=== PATIENT | male | born 1965 | race Two or more races ===

== ENCOUNTER 2021-10-15 13:40 | Outpatient (CLI) | payer OTHER | END 2021-10-15 23:59 | disposition home or self-care (01) | LOC: LAB 13:40 | PROVIDERS: ATTEND Specialist | DX: Z01.812 Encounter for preprocedural laboratory examination (principal); Z20.822 Contact with and (suspected) exposure to COVID-19 | CPT/HCPCS: U0003; C9803 ==

== ENCOUNTER 2021-10-21 05:47 | Inpatient (IN) | payer OTHER ==
[~2021-10-21] VITALS: Ht 185.4 cm; Wt 125.6 kg
[~2021-10-21 05:47] MED LIST: ANESTHESIA TRAY IN PYXIS 1 EA TRAY MC ONE
[2021-10-21] MEDS ORDERED: POLYMYXIN B SULFATE 500,000 UNITS ONE (06:28)
[2021-10-21] MEDS ORDERED: BUPIVACAINE 0.5 % PF 150 MG/30 ML VIAL ONE ×2 (06:28→07:15)
--- NOTE | 2021-10-21 06:45 | NUR ---
MS RN NOTES PT ARRIVED TO UNIT PT PT PREPARED FOR SURGERY WITH DR RANJANA Rolon KNEE ARTHROPLASTY CONSENTS SIGNED CHECKLIST DONE IV ACCESS ESTABLISHED ON THE LFA #20G. PT WAS TAKEN TO OR BY TRANSPORT VIA BED. ALL CONSENT SIN CHART TAKEN WITH PT. WILL ENDORSE TO DAY SHIFT NURSE.
[2021-10-21 07:00] VITALS: BP 105/56
[2021-10-21] MEDS ORDERED: MIDAZOLAM HCL 2 MG/2ML VIAL ONE (07:09)
[2021-10-21] MEDS ORDERED: PROPOFOL 0 ML ONE (07:09)
[2021-10-21] MEDS ORDERED: TRANEXAMIC ACID 3,000 MG in SODIUM CHLORIDE IRRIG SOLUTION 70 ML IR ONE (08:00)
[2021-10-21] MEDS ORDERED: PROPOFOL 100 ML ONE (08:54)
[2021-10-21 10:30] VITALS: BP 121/53
--- NOTE | 2021-10-21 10:30 | NUR ---
MS RN NOTES RECEIVED PATIENT FROM OR ENDORSED BY MEGHAN ASHFORD S/P LEFT TOTAL KNEE ARTHROPLASTY. DRESSING CLEAN AND INTACT. PATIENT IS AWAKE AND A/O X4. ON ROOM AIR TOLERATING WELL. NO SOB NOTED. NOT IN DISTRESS. WITH COMPLAINTS OF PAIN AT THE LEFT KNEE AT THE SCALE OF 4/10 BUT DOESN'T ASK FOR PAIN MEDICATION. WITH BRICENO CATHETER IN PLACED DRAINING CLEAR YELLOW URINE. SAFETY MEASURES IN PLACED. CALL LIGHT WITHIN REACH. BED ON LOWEST LOCKED POSITION, SIDE RAILS UP X2. WILL CONTINUE TO MONITOR.
[2021-10-21] MEDS ORDERED: TAMS-12 PO (10:48)
[2021-10-21] MEDS ORDERED: LOSA1TAB39 PO (10:48)
[2021-10-21] MEDS ORDERED: ROSU10TA29 PO (10:48)
[2021-10-21] MEDS ORDERED: METO25TA4 PO (10:48)
[2021-10-21] MEDS ORDERED: OMEP40CA21 PO (10:48)
[2021-10-21] MEDS ORDERED: ASPI-1169 PO (10:48)
[2021-10-21 11:00] VITALS: BP 127/70
[2021-10-21] MEDS ORDERED: ZOLPIDEM TARTRATE 5 MG TABLET PO PRN (13:30)
[2021-10-21] MEDS ORDERED: HYDROMORPHONE 1 MG/1 ML DISP.SYRIN IV PRN (13:30)
[2021-10-21] MEDS ORDERED: HYDROCODONE/APAP 5/325MG TABLET PO PRN (13:30)
[2021-10-21] MEDS ORDERED: SENNOSIDES 8.6 MG TABLET PO PRN (13:30)
[2021-10-21] MEDS ORDERED: DOCUSATE SODIUM 250 MG CAPSULE PO PRN (13:30)
[2021-10-21] MEDS: IV LR 1000 ML 1,000 ML IV PRN (13:30)
[2021-10-21] MEDS ORDERED: BISACODYL SUPP (10 MG) 10 MG/SUPP.RECT SUPP.RECT RC PRN (13:30)
[2021-10-21] MEDS ORDERED: ACETAMINOPHEN 325 MG TABLET PO PRN (13:30)
[2021-10-21 13:54] LABS: BASOPHILS % (AUTO) 0.2 % (0.0-2.0); EOSINOPHILS % (AUTO) 1.8 % (0.0-6.0); HEMATOCRIT 46 % (39-51); HEMOGLOBIN 14.7 g/dL (13.5-17.5); LYMPHOCYTES # (AUTO) 1.8 K/uL (0.8-4.8); LYMPHOCYTES % (AUTO) 12.5 % (20.0-44.0); MEAN CORPUSCULAR HGB CONC 32 g/dl (31.0-36.0); MEAN CORPUSCULAR VOLUME 87 fL (80-96); MONOCYTES # (AUTO) 0.8 K/uL (0.1-1.30); MONOCYTES % (AUTO) 5.4 % (2.0-12.0); NEUTROPHILS # (AUTO) 11.5 K/uL (1.8-8.9); NEUTROPHILS % (AUTO) 80.1 % (43.0-81.0); PLATELET COUNT (AUTO) 136 K/uL (150-450); WHITE BLOOD COUNT (AUTO) 14.3 K/uL (4.3-11.0)
[2021-10-21 14:08] LABS: CALCIUM, SERUM 9.1 mg/dL (8.5-10.1); CREATININE 1.1 mg/dL (0.6-1.3); POTASSIUM 3.5 mmol/L (3.5-5.1)
[2021-10-21] MEDS ORDERED: ONDANSETRON HCL/PF 4 MG/2 ML VIAL IV PRN (15:00)
[2021-10-21] MEDS ORDERED: MENTHOL/CETYLPYRD (CEPACOL) 1 LOZ LOZENGE PO PRN (15:00)
[2021-10-21] MEDS ORDERED: CLONIDINE HCL 0.1 MG TABLET PO PRN (15:00)
[2021-10-21] MEDS ORDERED: HYDROMORPHONE 1 MG/1 ML DISP.SYRIN IM/IV/SC PRN (15:00)
[2021-10-21] MEDS ORDERED: PANTOPRAZOLE 40 MG TABLET.DR PO ONE (15:00)
[2021-10-21] MEDS ORDERED: diphenhydrAMINE HCL 25 MG CAPSULE PO PRN (15:00)
[2021-10-21 16:00] VITALS: BP 167/88
[2021-10-21] MEDS: DOCUSATE SODIUM 100 MG CAPSULE PO SCH (16:51)
[2021-10-21] MEDS ORDERED: oxyCODONE IR immediate release 5 MG PO ONE (17:00)
[2021-10-21] MEDS ORDERED: METOPROLOL SUCCINATE 25 MG TAB.SR.24H PO SCH (18:00)
--- NOTE | 2021-10-21 18:41 | NUR ---
MS RN CLOSING NOTES PATIENT ON BED, AWAKE AND A/O X4. ON ROOM AIR TOLERATING WELL. NO SOB NOTED. NOT IN DISTRESS. S/P LEFT TOTAL KNEE ARTHROPLASTY WITH DRESSING CLEAN, DRY AND INTACT. WITH COMPLAINTS OF PAIN AT THE LEFT KNEE AT THE SCALE OF 4/10. COMFORT MEASURES PROVIDED. WITH BRICENO CATHETER IN PLACED DRAINING CLEAR YELLOW URINE. DUE MEDS GIVEN. SAFETY MEASURES IN PLACED. CALL LIGHT WITHIN REACH. BED ON LOWEST LOCKED POSITION, SIDE RAILS UP X2. WILL ENDORSE TO NEXT SHIFT FOR ZIYAD.
--- NOTE | 2021-10-21 19:30 | NUR ---
MS RN OPENING NOTES RECEIVED PT LYING IN BED AWAKE, ON BEDSIDE. A/O X4. NO ACUTE DISTRESS NOTED. BREATHING EVEN AND NON-LABORED ON ROOM AIR. C/O LEFT KNEE PAIN 6/10 AND TINGLING ON HIS LEFT FOOT. HAS LEFT FOREARM IV ACCESS #20G WITH LR RUNNING AT 100 ML/HR. NO SIGNS OF INFILTRATION NOTED. LEFT KNEE DRESSING C/D/I. SAFETY MEASURES MAINTAINED: BED LOW AND LOCKED, SIDE RAILS UP X2, CALL LIGHT WITHIN REACH. WILL CONTINUE PLAN OF CARE.
[2021-10-21 20:00] VITALS: BP 131/88
[2021-10-21] MEDS: ANCEF 1 GM/50 ML D5W IV SCH ×2 (20:12)
--- NOTE | 2021-10-21 20:30 | NUR ---
MS RN NOTES PT C/O LEFT KNEE PAIN 09/23. VS WNL. PRN DILAUDID 0.5MG ADMINISTERED AND TOLERATED WELL.
[2021-10-21] MEDS ORDERED: ATORVASTATIN 10 MG TABLET PO SCH (22:00)
[2021-10-22] MEDS: IV LR 1000 ML 1,000 ML IV PRN (01:11)
[2021-10-22] MEDS: oxyCODONE IR immediate release 5 MG PO PRN ×3 (01:16→15:21)
--- NOTE | 2021-10-22 01:20 | NUR ---
MS RN NOTES PT C/O LEFT KNEE PAIN 07/24. ADMINISTERED PRN OXY 5MG. TOLERATED WELL.
[2021-10-22] MEDS: ANCEF 1 GM/50 ML D5W IV SCH ×2 (04:51)
--- NOTE | 2021-10-22 07:05 | NUR ---
MS RN CLOSING NOTES PT LYING IN BED SLEEPING INTERMITTENTLY. A/O X4. NO SOB OR NOTED. TOLERATING ROOM AIR WELL. C/O LEFT KNEE PAIN 05/24, COMFORT MEASURES PROVIDED. HAS LEFT FOREARM IV ACCESS #20G WITH LR RUNNING AT 100 ML/HR. INTACT, PATENT AND FLUSHING WELL. LEFT KNEE DRESSING C/D/I. ALL NEEDS ATTENDED. SAFETY MEASURES IN PLACED: BED LOW AND LOCKED, SIDE RAILS UP X2, CALL LIGHT WITHIN REACH. WILL ENDORSE TO AM SHIFT FOR ZIYAD.
[2021-10-22 07:15] LABS: HEMOGLOBIN 14.1 g/dL (13.5-17.5)
[2021-10-22 08:00] VITALS: BP 133/78
[2021-10-22] MEDS ORDERED: ASPIRIN 325 MG TABLET PO SCH (09:00)
[2021-10-22] MEDS ORDERED: ASPIRIN 81 MG TAB.CHEW PO SCH (09:00)
[2021-10-22] MEDS ORDERED: PANTOPRAZOLE 40 MG TABLET.DR PO SCH (09:00)
[2021-10-22] MEDS ORDERED: TAMSULOSIN 0.4 MG CAP.SR.24H PO SCH (09:00)
[2021-10-22] MEDS ORDERED: oxyCODONE IR immediate release 5 MG PO ONE (09:00)
[2021-10-22] MEDS ORDERED: LOSARTAN/HCTZ 50-12.5MG/ 1 EA TABLET PO SCH (09:00)
[2021-10-22] MEDS: DOCUSATE SODIUM 100 MG CAPSULE PO SCH (09:01)
[2021-10-22 09:02] VITALS: BP 133/78
--- NOTE | 2021-10-22 16:12 | NUR ---
RN NOTE PATIENT DISCHARGED FROM FACILITY @ 1613. IV ACCESS TAKEN OUT AND DISCHARGED IN STABLE CONDITION. ABLE TO AMBULATE WITH ASSIST FROM [facility]. RECEIVED ALL CLOTHING AND VALUABLES UPON DISCHARGE. TAKEN OUT VIA WHEELCHAIR BY OFFSET PRESS OPERATOR.
== END 2021-10-22 15:30 | disposition home or self-care (01) | DRG 470 ==
LOC: DS 05:47 → MED 05:48
PROVIDERS: ADMIT Nurse Practitioner Acute Care; ATTEND Nurse Practitioner Acute Care
PROC: 0SRD0J9 Replacement of Left Knee Joint with Synthetic Substitute, Cemented, Open Approach (ICD-10-PCS; principal; 2021-10-21)
DX: M17.12 Unilateral primary osteoarthritis, left knee (principal); G47.33 Obstructive sleep apnea (adult) (pediatric); I10 Essential (primary) hypertension; E66.01 Morbid (severe) obesity due to excess calories; Z90.79 Acquired absence of other genital organ(s); K21.9 Gastro-esophageal reflux disease without esophagitis; E78.00 Pure hypercholesterolemia, unspecified; F17.200 Nicotine dependence, unspecified, uncomplicated; X58.XXXA Exposure to other specified factors, initial encounter; Y99.0 Civilian activity done for income or pay; Z68.37 Body mass index [BMI] 37.0-37.9, adult; Z85.46 Personal history of malignant neoplasm of prostate
CPT/HCPCS: 36415; 80048-TC; 85025-TC; 85027-TC; 86850-TC; 87081-TC; 97116-TC; 97530-TC; 97760-TC; A4217; A6253; C1713; C1776; G0378; J0690; J1170; J2250; J3490; J7030; J7060; J7120